=== PATIENT | female | born 1960 | race Asian ===

== ENCOUNTER 2017-12-30 13:48 | Emergency (ER) | payer SELFPAY ==
[~2017-12-30] VITALS: Ht 167.6 cm; Wt 65.0 kg
[2017-12-30] MEDS ORDERED: METF500T6 PO (14:02)
[2017-12-30] MEDS ORDERED: MORPHINE SULFATE 4 MG/ML CPJ (NOT FOR IM USE) IV STA (14:21)
[2017-12-30] MEDS ORDERED: FAMOTIDINE 20MG/2ML VIAL IV STA (14:21)
[2017-12-30] MEDS ORDERED: SODIUM CHLORIDE 0.9% 1,000 ML IV ONE ×2 (14:21→15:48)
[2017-12-30] MEDS ORDERED: ONDANSETRON HCL 4MG/2ML VIAL IV STA (14:21)
[2017-12-30 14:39] LABS: BASOPHILS % 0.5 % (0.0-2.0); EOSINOPHILS % 1.5 % (0.0-5.0); HEMATOCRIT. 39.7 % (36.0-48.0); HEMOGLOBIN. 13.5 g/dL (12.0-16.0); LYMPHOCYTES % 18.2 % (20.0-50.0); MEAN CORPUSCULAR HEMOGLOBIN 29.7 pg (28.0-32.0); MEAN CORPUSCULAR VOLUME 87.5 fL (81.0-99.0); MEAN PLATELET VOLUME 7.7 fl (7.4-10.4); MONOCYTES % 4.1 % (2.0-8.0); NEUTROPHILS % 75.7 % (40.0-76.0); PLATELET 223 x1000/uL (130-400); RED BLOOD CELL COUNT 4.54 mill/uL (4.2-5.4)
[2017-12-30 14:43] LABS: CHLORIDE 108 mEq/L (98-107)
[2017-12-30 14:46] LABS: PARTIAL THROMBOPLASTIN TIME 22.9 sec (23.4-31.0); PROTHROMBIN TIME 10.1 sec (9.4-11.6)
[2017-12-30 16:00] VITALS: BP 154/87
[2017-12-30] MEDS ORDERED: KETOROLAC 30MG/ML VIAL IV ONE (16:00)
[2017-12-30 16:03] LABS: CLARITY URINE CLEAR (CLEAR); COLOR URINE YELLOW (YELLOW); KETONES URINE 2+ (NEGATIVE); LEUKOCYTE ESTERASE URINE NEGATIVE (NEGATIVE); NITRITE URINE NEGATIVE (NEGATIVE); OCCULT BLOOD URINE 2+ (NEGATIVE); PROTEIN URINE TRACE (NEGATIVE); SPECIFIC GRAVITY URINE 1.024 (1.005-1.030); UROBILINOGEN URINE 0.2 E.U./dL (0.2-1.0)
[2017-12-30] MEDS ORDERED: CEFTRIAXONE 1 G PREMIX 50 ML IV ONE (16:30)
[2017-12-30] MEDS ORDERED: TAMSULOSIN HCL 0.4MG SR CAPSULE PO ONE (16:30)
== END 2017-12-30 18:03 | disposition home or self-care (01) ==
LOC: ER 13:48
DX: N13.2 Hydronephrosis with renal and ureteral calculous obstruction (principal); R11.10 Vomiting, unspecified; E11.65 Type 2 diabetes mellitus with hyperglycemia; I10 Essential (primary) hypertension
CPT/HCPCS: 36415; 74176; 80053; 81003; 83690; 83880; 84484; 85025; 85610; 85730; 96361; 96365; 96375; 99285; J0696; J1885; J2270; J2405; J3490; J7030; Z7610